=== PATIENT | female | born 1950 | race Two or more races ===

== ENCOUNTER 2024-03-18 12:46 | Emergency (ER) | payer MEDICARE ==
[~2024-03-18] VITALS: Ht 160 cm; Wt 65.9 kg
[~2024-03-18 12:46] MED LIST: LOSA-381 PO
[2024-03-18 12:52] VITALS: TEMP 98
[2024-03-18] MEDS ORDERED: ROSU20TA73 PO (13:00)
[2024-03-18] MEDS ORDERED: CETI-450 PO (13:00)
[2024-03-18] MEDS ORDERED: ALEN70TA65 PO (13:00)
[2024-03-18 13:40] VITALS: BP 123/72; PULSE 85; RESP 18
[2024-03-18] MEDS ORDERED: HYDR-4527 PO (13:59)
[2024-03-18] MEDS ORDERED: METH4TAB95 PO (13:59)
== END 2024-03-18 14:16 | disposition home or self-care (01) ==
LOC: EMS 13:09
DX: L29.9 Pruritus, unspecified (principal); E78.00 Pure hypercholesterolemia, unspecified; I10 Essential (primary) hypertension
CPT/HCPCS: 99283; Z7502

== ENCOUNTER 2024-06-07 11:33 | Emergency (ER) | payer MEDICARE ==
[~2024-06-07] VITALS: Ht 154.9 cm; Wt 68.2 kg
[~2024-06-07 11:33] MED LIST changes: +ALEN70TA65 PO; +CETI-450 PO; +HYDR-4527 PO; +METH4TAB95 PO; +ROSU20TA73 PO
[2024-06-07 11:56] VITALS: TEMP 98.1
[2024-06-07 12:06] LABS: COVID AG,FIA SOURCE NASAL SWAB
[2024-06-07 12:26] LABS: RAPID GROUP A STREP NEGATIVE (NEGATIVE)
[2024-06-07 12:29] LABS: SARS-COV2 (COVID) ANTIGEN,FIA Negative (Negative)
[2024-06-07 12:32] LABS: INFLUENZA TYPE A NEGATIVE FOR TYPE A (NEGATIVE); INFLUENZA TYPE B NEGATIVE FOR TYPE B (NEGATIVE)
[2024-06-07 14:47] LABS: BASOPHILS % (AUTO) 0.9 % (0.0-2.0); EOSINOPHILS % (AUTO) 1.5 % (1.0-6.0); HEMATOCRIT 39.6 % (36-46); HEMOGLOBIN 13.1 g/dL (12.0-16.0); LYMPHOCYTES # (AUTO) 2.8 K/uL (1.0-4.8); LYMPHOCYTES % (AUTO) 26.4 % (22.0-44.0); MEAN CORPUSCULAR VOLUME 88 fL (80-100); MONOCYTES # (AUTO) 0.7 K/uL (0.1-1.0); MONOCYTES % (AUTO) 7.2 % (2.0-9.0); NEUTROPHILS # (AUTO) 6.7 K/uL (1.8-7.7); PLATELET COUNT (AUTO) 319 K/uL (150-450); RED BLOOD CELL COUNT(AUTO) 4.51 MIL/uL (4.00-5.20); RED CELL DISTRIBUTION WIDTH 14.1 % (11.5-14.5); WHITE BLOOD COUNT (AUTO) 10.4 K/uL (4.5-11.0)
[2024-06-07 15:00] LABS: ANION GAP 10 mmol/L (8-16); CALCIUM, TOTAL 8.4 mg/dL (8.8-10.5); CARBON DIOXIDE 25 mmol/L (22-29); CHLORIDE 105 mmol/L (98-107); CREATININE 0.57 mg/dL (0.60-1.30); GLOMERULAR FILTR. RATE CALC > 60 mL/min (>60); GLUCOSE,RANDOM 81 mg/dL (70-110); POTASSIUM 3.8 mmol/L (3.5-5.1); SODIUM SERUM 140 mmol/L (136-145); UREA NITROGEN, BLOOD 18 mg/dL (7-18)
[2024-06-07 15:08] LABS: TROPONIN I-HIGH SENSITIVITY 4 ng/L (<51)
[2024-06-07] MEDS: ACETAMINOPHEN 325 MG TABLET PO ONE (15:34)
[2024-06-07] MEDS: DEXAMETHASONE 4 MG TABLET PO ONE (15:34)
[2024-06-07 15:35] VITALS: BP 126/70; PULSE 66; RESP 18
== END 2024-06-07 16:06 | disposition home or self-care (01) ==
LOC: EMS 11:33
DX: R20.0 Anesthesia of skin (principal); H92.02 Otalgia, left ear; E78.00 Pure hypercholesterolemia, unspecified; I10 Essential (primary) hypertension; Z20.822 Contact with and (suspected) exposure to COVID-19
CPT/HCPCS: 99284; 70450; 87426; 80048; 84484; 85025; 87430; 87804; 36415; 93005; J8540